=== PATIENT | female | born 1960 | race Caucasian/White ===

== ENCOUNTER 2016-12-12 19:04 | Emergency (ER) | payer MEDICARE ==
[~2016-12-12 19:04] MED LIST: ALBUTEROL0.63 MG/3 INH; AMBIEN10 MG PO; AMBIEN5 MG PO; CARDIZEM LA180 MG PO; ELIQUIS5 MG PO; FERROUS SULFATE PO; FUROSEMIDE40 MG PO; HYDROCODON-ACE1 EAC6 PO; LANOXIN TAB 00.25 MG PO; LASIX20 MG PO; LISINOPRIL5 MG PO; LOPRESSOR100 MG PO; LOPRESSOR50 MG PO; NEURONTIN 400400 MG PO; PROTONIX40 MG PO; SEROQUEL100 MG PO; SEROQUEL25 MG PO; SEROQUEL300 MG PO; THERAGRAN TAB1 EA PO; TRILEPTAL600 MG PO; VALACYCLOVIR1000 MG PO
[2016-12-12 20:34] LABS: HEMOGLOBIN 11.7 gm/dl (12.3-15.3); RED BLOOD COUNT 4.05 M/UL (4.00-5.10); WHITE BLOOD COUNT 4.9 K/UL (4.5-11.0)
[2016-12-12 20:54] LABS: BUN/CREATININE RATIO 10 (0-10)
[2017-05-07] MEDS ORDERED: ENTRESTO PO (12:03)
[2017-05-07] MEDS ORDERED: BUMETANIDE2 MG PO (12:03)
[2017-05-07] MEDS ORDERED: VENOFER100 MG/5 M IV (12:06)
[2017-05-10] MEDS ORDERED: ENTRESTO PO (16:16)
[2017-05-10] MEDS ORDERED: NORCO 10-325 T1 EACH PO (16:18)
[2017-05-10] MEDS ORDERED: ELIQUIS5 MG PO (16:32)
== END 2016-12-12 23:06 | disposition left against medical advice (07) ==
LOC: ER1 19:04
PROVIDERS: Physician Assistant
DX: R07.9 Chest pain, unspecified (principal); M25.511 Pain in right shoulder; R11.2 Nausea with vomiting, unspecified; R05 Cough; I48.91 Unspecified atrial fibrillation; I49.3 Ventricular premature depolarization; I25.2 Old myocardial infarction; I11.0 Hypertensive heart disease with heart failure; I50.9 Heart failure, unspecified; J45.909 Unspecified asthma, uncomplicated; F17.210 Nicotine dependence, cigarettes, uncomplicated; Z90.49 Acquired absence of other specified parts of digestive tract; Z79.01 Long term (current) use of anticoagulants; Z79.899 Other long term (current) drug therapy; Z88.5 Allergy status to narcotic agent; Z88.8 Allergy status to other drugs, medicaments and biological substances
CPT/HCPCS: 36415; 71020; 73030; 80053; 80162; 82550; 82553; 83874; 83880; 84484; 85025; 93005; 96374; 99285; J2405